=== PATIENT | male | born 1935 ===

== ENCOUNTER 2017-05-19 06:13 | Inpatient (IN) | payer MEDICARE, OTHER ==
--- NOTE | 2017-05-19 06:40 | ED PDOC ---
Arrival/HPI - General Chief Complaint: Chest Pain Time Seen by Provider: 05/19/17 06:21 Historian: Patient, Parent (Daughter) - History of Present Illness Narrative History of Present Illness (Text): 05/19/17 06:36 Neelima Beltrán is an 82 year old male, whose past medical history includes CAD , coronary stent, hyperlipidemia, hypertension, and GERD, who presents to the Emergency department complaining of chest discomfort and dizziness. Daughter states patient woke up this morning increasingly dizzy with associated nausea, vomiting, and chest tightness. Patient describes dizziness as room-spinning. Daughter notes patient was recently ill with cold-like symptoms and cough. Patient denies any fever, shortness of breath, diarrhea, urinary symptoms, back pain, neck pain, headache, or any other complaints. PMD: Dr. Jan Dowd Time/Duration: Other (this morning) Symptom Course: Unchanged Activities at Onset: Light Context: Home Past Medical History - Provider Review Nursing Documentation Reviewed: Yes - Infectious Disease Hx of Infectious Diseases: None - Tetanus Immunization Tetanus Immunization: Unknown - Cardiac Hx Cardiac Disorders: Yes (ANGIOPLASTY 1998) Hx Hypertension: Yes - Pulmonary Hx Respiratory Disorders: Yes (DEVIATED SEPTUM WITH SX) Hx Emphysema: Yes Hx Pneumonia: Yes - Neurological Hx Neurological Disorder: No - HEENT Hx HEENT Disorder: (WEARS RX GLASSES,DEVIATED SEPTUM WITH SX) Hx Cataracts: Yes (RT WITH SURGERY) - Renal Hx Renal Disorder: No - Endocrine/Metabolic Hx Endocrine Disorders: No - Hematological/Oncological Hx Blood Disorders: No - Integumentary Hx Dermatological Disorder: No - Musculoskeletal/Rheumatological Hx Musculoskeletal Disorders: Yes (SLIPPED DISC) Hx Falls: No Hx Unsteady Gait: Yes - Gastrointestinal Hx Gastrointestinal Disorders: Yes (APPENDECTOMY,) Hx Gastroesophageal Reflux: Yes - Genitourinary/Gynecological Hx Genitourinary Disorders: Yes Hx Prostate Problems: Yes (ENLARGED ON PROSCAR) - Psychiatric Hx Psychophysiologic Disorder: No Hx Depression: No Hx Emotional Abuse: No Hx Physical Abuse: No Hx Substance Use: No - Surgical History Hx Appendectomy: Yes Hx Cardiac Catheterization: Yes - Suicidal Assessment Feels Threatened In Home Enviroment: No Family/Social History - Physician Review Nursing Documentation Reviewed: Yes Family/Social History: Unknown Family HX Smoking Status: Former Smoker Hx Alcohol Use: No Hx Substance Use: No Hx Substance Use Treatment: No Allergies/Home Meds Allergies/Adverse Reactions: Allergies Penicillins Allergy (Verified 05/19/17 06:36) RASH Home Medications: Home Meds Medication Instructions Recorded Confirmed Finasteride [Proscar] 5 mg PO DAILY 12/10/11 01/22/16 Pravastatin Sodium [Pravachol] 80 mg PO DAILY 12/10/11 01/22/16 Metoprolol Succinate [Toprol XL] 25 mg PO DAILY 01/15/13 01/22/16 Amlodipine Besylate [Norvasc] 5 mg PO DAILY 01/22/16 01/22/16 Clopidogrel [Plavix] 75 mg PO DAILY 01/22/16 01/22/16 Review of Systems - Physician Review All systems were reviewed & negative as marked: Yes - Review of Systems Constitutional: Normal. absent: Fevers Eyes: Normal ENT: Normal Respiratory: absent: SOB Cardiovascular: Chest Pain Gastrointestinal: Nausea, Vomiting Genitourinary Male: Normal. absent: Dysuria, Frequency, Hematuria, Urinary Output Changes Musculoskeletal: Normal. absent: Back Pain, Neck Pain Skin: Normal. absent: Rash Neurological: Dizziness Endocrine: Normal Hemo/Lymphatic: Normal Psychiatric: Normal Physical Exam Vital Signs Reviewed: Yes Vital Signs Pulse Resp BP Pulse Ox 05/19/17 06:33 71 12 110/60 98 Temperature: Afebrile Blood Pressure: Normal Pulse: Regular Respiratory Rate: Normal Appearance: Positive for: Non-Toxic, Comfortable Pain Distress: None Mental Status: Positive for: Alert and Oriented X 3 - Systems Exam Head: Present: Atraumatic, Normocephalic Pupils: Present: PERRL Extroacular Muscles: Present: EOMI Conjunctiva: Present: Normal Ears: Present: Normal, NORMAL TM, Normal Canal. No: Erythema, TM Bulging, Fluid , TM Perf Mouth: Present: Moist Mucous Membranes Pharnyx: Present: Normal. No: ERYTHEMA, EXUDATE, TONSILS ENLARGED, Peritonsilar Swelling, Uvular Deviation, Muffled/Hoarse Voice, Strider, Soft Palate/Uvular Edema Nose (External): Present: Atraumatic Nose (Internal): Present: Normal Inspection Neck: Present: Normal Range of Motion Respiratory/Chest: Present: Clear to Auscultation, Good Air Exchange. No: Respiratory Distress, Accessory Muscle Use Cardiovascular: Present: Regular Rate and Rhythm, Normal S1, S2. No: Murmurs Abdomen: Present: Normal Bowel Sounds. No: Tenderness, Distention, Peritoneal Signs Back: Present: Normal Inspection Upper Extremity: Present: Normal Inspection. No: Cyanosis, Edema Lower Extremity: Present: Normal Inspection. No: Edema Neurological: Present: GCS=15, CN II-XII Intact, Speech Normal Skin: Present: Warm, Dry, Normal Color. No: Rashes Psychiatric: Present: Alert, Oriented x 3, Normal Insight, Normal Concentration Medical Decision Making ED Course and Treatment: 05/19/17 06:36 Impression: 82 year old male complaining of dizziness, nausea, vomiting, and chest tightness Differential Diagnosis included but are not limited to: chest pain secondary ACS vs. llabyrinthitis vs. viral syndromevs new onset atrial fibrillation Plan: -- CT Head w/o contrast -- EKG -- Chest X-ray -- Labs, cardiac enzymes -- IV fluids -- Zofran -- Reassess and disposition Prior Visits: Notes and results from previous visits were reviewed. On 03/25/2015, pt was seen in the Emergency department for left-sided chest pain. Pt was d/c home Progress Notes: Reviewed EKG, a fib at [address] Non-specific ST/T wave changes. 05/19/17 07:[address] Medel, pending labs, CT Head, Chest X-ray, re-assessment , and final disposition. - Lab Interpretations Lab Results: 05/19/17 06:45 05/19/17 06:45 Lab Results 05/19/17 06:45: WBC 6.8 D, RBC 4.07, Hgb 13.6 L, Hct 39.2 L, MCV 96.3, MCH 33.4 , MCHC 34.7, RDW 13.2, Plt Count 144, MPV 10.1 05/19/17 06:45: PT 10.7, INR 0.97, APTT 32.8 05/19/17 06:45: Sodium 139, Potassium 3.8, Chloride 100, Carbon Dioxide 29, Anion Gap 13, BUN 19, Creatinine 1.3, Est GFR ( Amer) > 60, Est GFR (Non- Af Amer) 53, Random Glucose 164 H, Calcium 9.0, Total Bilirubin 0.6, AST 39, ALT 36, Alkaline Phosphatase 65, Lactate Dehydrogenase 438, Total Creatine Kinase 76, Troponin I < 0.01, Total Protein 7.9, Albumin 4.3, Globulin 3.5, Albumin/Globulin Ratio 1.2 - RAD Interpretation Radiology Orders: 05/19/17 06:41 HEAD W/O CONTRAST [CT] Stat 05/19/17 06:42 CHEST PORTABLE [RAD] Stat - EKG Interpretation Interpreted by ED Physician: Yes Type: 12 lead EKG - Medication Orders Current Medication Orders: Sodium Chloride (Sodium Chloride 0.9%) 1,000 mls @ 100 mls/hr IV .Q10H TIFFANY Last Admin: 05/19/17 06:58 Dose: 100 mls/hr eMAR Start Stop Document 05/19/17 06:58 SHILOH (Rec: 05/19/17 06:58 SHILOH [id number]) Intravenous Solution Start Date 05/19/17 Start Time 06:58 Metoclopramide HCl (Reglan) 10 mg IVP STAT STA Stop: 05/19/17 07:46 Discontinued Medications Ondansetron HCl (Zofran Inj) 4 mg IVP ONCE ONE Stop: 05/19/17 06:44 Last Admin: 05/19/17 06:58 Dose: 4 mg IVP Administration Document 05/19/17 06:58 SHILOH (Rec: 05/19/17 06:58 SHILOH [id number]) Charges for Administration # of IVP Administrations 1 - Scribe Statement The provider has reviewed the documentation as recorded by the Emilia Andrade Provider Scribe Attestation: All medical record entries made by the Scribe were at my direction and personally dictated by me. I have reviewed the chart and agree that the record accurately reflects my personal performance of the history, physical exam, medical decision making, and the department course for this patient. I have also personally directed, reviewed, and agree with the discharge instructions and disposition. Disposition/Present on Arrival - Present on Arrival Any Indicators Present on Arrival: No History of DVT/PE: No History of Uncontrolled Diabetes: No Urinary Catheter: No History of Decub. Ulcer: No - Disposition Have Diagnosis and Disposition been Completed?: No Diagnosis: Chest pain, Dizziness, Atrial fibrillation Disposition Time: 07:40 Patient Problems: Current Active Problems Problem Status Onset Chest pain Acute Dizziness Acute Condition: STABLE Discharge Instructions (ExitCare): Chest Pain (ED) Forms: [employer] (Slovenian)
[2017-05-19] MEDS: Sodium Chloride 0.9% 1,000 ML IV SCH ×2 (06:58→17:21)
[2017-05-19 07:05] LABS: HEMATOCRIT 39.2 % (42.0-52.0); MEAN CELL VOLUME 96.3 fl (80.0-105.0); MEAN CORPUSCULAR HEMOGLOBIN 33.4 pg (25.0-35.0); MEAN CORPUSCULAR HGB CONC 34.7 g/dl (31.0-37.0); MEAN PLATELET VOLUME 10.1 fl (7.0-11.0); RED CELL DISTRIBUTION WIDTH 13.2 % (11.5-14.5); WHITE BLOOD COUNT 6.8 10^3/ul (4.5-11.0)
[2017-05-19 07:16] LABS: ALB/GLOB RATIO 1.2 (1.1-1.8); ALKALINE PHOSPHATASE 65 U/L (38-126); ALT/SGPT 36 U/L (7-56); AST/SGOT 39 U/L (17-59); BILIRUBIN,TOTAL 0.6 mg/dL (0.2-1.3); BLOOD UREA NITROGEN 19 mg/dL (7-21); CARBON DIOXIDE 29 mmol/L (21-33); CHLORIDE 100 mmol/L (98-107); GFR AFRICAN-AMERICAN > 60; GLUCOSE,RANDOM 164 mg/dL (70-110); POTASSIUM 3.8 mmol/L (3.6-5.0); SODIUM 139 mmol/L (132-148); TOTAL PROTEIN 7.9 g/dL (5.8-8.3)
[2017-05-19 07:27] LABS: TROPONIN I < 0.01 ng/mL
[2017-05-19 07:34] LABS: INR 0.97 (0.93-1.08); PARTIAL THROMBOPLASTIN TIME 32.8 Seconds (25.1-36.5)
--- NOTE | 2017-05-19 08:10 | ED PDOC ---
Physical Exam Vital Signs Temp Pulse Resp BP Pulse Ox 05/19/17 08:02 97.2 F L 68 18 99/68 L 98 05/19/17 06:33 71 12 110/60 98 Finger Stick Blood Glucose: 148 Medical Decision Making ED Course and Treatment: 05/19/17 07:07 the patient is signed out to me by Dr. Hopkins, who states the patient is pending CT result follow up, reevaluation, and admission. The patient upon reevaluation is complaining of dizziness, I ordered Reglan IV. 05/19/17 07:58 EKG: Ordered, reviewed, and independently interpreted the EKG. Rate : 71 BPM Rhythm : Atrial Fibrillation Interpretation : No ST-segment elevations or depressions, no T-wave inversions, normal intervals. Comparison : No change from EKG at 6:30am. The patient does not have a prior history of atrial fibrillation. 05/19/17 10:[address] reviewed. No infarct or bleed. Aspirin PO ordered. NIHSS = 0. Considering patient's cardiac risk factors, new onset afib and presentation of chest pain and dizziness patient should be admitted for telemetry observation. Since patient continued to have dizziness will consider CVA rule as well. Case discussed with Dr. Dowd who agreed to admit to her service. She requested Dr. Rod for cardiology and Dr. Mckeon for neurology. I discussed the case with Dr. Rod who recommended Eliquis 5mg BID. First dose was given here in the ED. No further recommendations. - Lab Interpretations Lab Results: 05/19/17 06:45 05/19/17 06:45 Lab Results 05/19/17 06:45: WBC 6.8 D, RBC 4.07, Hgb 13.6 L, Hct 39.2 L, MCV 96.3, MCH 33.4 , MCHC 34.7, RDW 13.2, Plt Count 144, MPV 10.1 05/19/17 06:45: PT 10.7, INR 0.97, APTT 32.8 05/19/17 06:45: Sodium 139, Potassium 3.8, Chloride 100, Carbon Dioxide 29, Anion Gap 13, BUN 19, Creatinine 1.3, Est GFR ( Amer) > 60, Est GFR (Non- Af Amer) 53, Random Glucose 164 H, Calcium 9.0, Total Bilirubin 0.6, AST 39, ALT 36, Alkaline Phosphatase 65, Lactate Dehydrogenase 438, Total Creatine Kinase 76, Troponin I < 0.01, Total Protein 7.9, Albumin 4.3, Globulin 3.5, Albumin/Globulin Ratio 1.2 05/19/17 06:38: POC Glucose (mg/dL) 148 H - RAD Interpretation Radiology Orders: 05/19/17 06:41 HEAD W/O CONTRAST [CT] Stat 05/19/17 06:42 CHEST PORTABLE [RAD] Stat - Medication Orders Current Medication Orders: Sodium Chloride (Sodium Chloride 0.9%) 1,000 mls @ 100 mls/hr IV .Q10H TIFFANY Last Admin: 05/19/17 06:58 Dose: 100 mls/hr eMAR Start Stop Document 05/19/17 06:58 SHILOH (Rec: 05/19/17 06:58 SHILOH [id number]) Intravenous Solution Start Date 05/19/17 Start Time 06:58 Discontinued Medications Metoclopramide HCl (Reglan) 10 mg IVP STAT STA Stop: 05/19/17 07:46 Last Admin: 05/19/17 08:08 Dose: 10 mg IVP Administration Document 05/19/17 08:08 RG (Rec: 05/19/17 08:10 RG [id number]) Charges for Administration # of IVP Administrations 1 Ondansetron HCl (Zofran Inj) 4 mg IVP ONCE ONE Stop: 05/19/17 06:44 Last Admin: 05/19/17 06:58 Dose: 4 mg IVP Administration Document 05/19/17 06:58 SHILOH (Rec: 05/19/17 06:58 SHILOH [id number]) Charges for Administration # of IVP Administrations 1 - Scribe Statement The provider has reviewed the documentation as recorded by the Emilia Benavides Provider Scribe Attestation: All medical record entries made by the Scribe were at my direction and personally dictated by me. I have reviewed the chart and agree that the record accurately reflects my personal performance of the history, physical exam, medical decision making, and the department course for this patient. I have also personally directed, reviewed, and agree with the discharge instructions and disposition. Disposition/Present on Arrival - Present on Arrival Any Indicators Present on Arrival: No History of DVT/PE: No History of Uncontrolled Diabetes: No Urinary Catheter: No History of Decub. Ulcer: No History Surgical Site Infection Following: None - Disposition Have Diagnosis and Disposition been Completed?: Yes Diagnosis: Chest pain, Dizziness, Atrial fibrillation Disposition: HOSPITALIZED Disposition Time: 14:05 Patient Plan: Observation Patient Problems: Current Active Problems Problem Status Onset Atrial fibrillation Acute Chest pain Acute Dizziness Acute Condition: STABLE NIHSS Scale ([place]) - How Severe is the Stoke Baseline Level of Consciousness: 0=Alert LOC to Questions: 0=Both comments correct LOC to commands: 0=Obeys both correctly Best Gaze: 0=Normal Visual: 0=No visual loss Facial: 0=Normal Motor Arm - Left: 0=No drift Motor Arm - Right: 0=No drift Motor Leg - Left: 0=No drift Motor Leg - Right: 0=No drift Limb Ataxia: 0=Absent Sensory: 0=Normal Best Language: 0=No aphasia Dysarthia: 0=Normal articulation Extinction & Inattention (Neglect): 0=Normal, no object Score: 0 Risk Level: No Stroke Risk rTPA Inclusion/Exclusion - Inclusion Criteria for Altepase Patient is 18 years or Older: Yes The Clinical Diagnosis of Ischemic Stroke That is Causing a Potentially Disabling Neurological Deficit: No Time of Onset is Well Established to be Less Than 270 Minute Before Treatment Would Begin: No Risk/Benefit Discussed With Patient/Family Member Present: No
--- NOTE | 2017-05-19 08:47 | RAD ---
HISTORY: chest pain COMPARISON: 03/25/2015 FINDINGS: LUNGS: No active pulmonary disease. PLEURA: No significant pleural effusion identified, no pneumothorax apparent. CARDIOVASCULAR: Normal. OSSEOUS STRUCTURES: No significant abnormalities. VISUALIZED UPPER ABDOMEN: Normal. OTHER FINDINGS: None. IMPRESSION: No active disease.
--- NOTE | 2017-05-19 10:32 | CT ---
PROCEDURE: CT HEAD WITHOUT CONTRAST. HISTORY: dizzy COMPARISON: None available. TECHNIQUE: Axial computed tomography images were obtained through the head/brain without intravenous contrast. Radiation dose: Total exam DLP = 775 mGy-cm. This CT exam was performed using one or more of the following dose reduction techniques: Automated exposure control, adjustment of the mA and/or kV according to patient size, and/or use of iterative reconstruction technique. FINDINGS: HEMORRHAGE: No intracranial hemorrhage. BRAIN: No mass effect or edema. No atrophy or chronic microvascular ischemic changes. VENTRICLES: Unremarkable. No hydrocephalus. CALVARIUM: Unremarkable. PARANASAL SINUSES: Unremarkable as visualized. No significant inflammatory changes. MASTOID AIR CELLS: Unremarkable as visualized. No inflammatory changes. OTHER FINDINGS: None. IMPRESSION: Normal CT of the Head.
[2017-05-19 18:33] VITALS: BMI 18.3
--- NOTE | 2017-05-19 18:58 | CARD ---
APPROVED REPORT EKG Measurement Heart [id number] <Conclusion> Atrial fibrillation Abnormal ECG
--- NOTE | 2017-05-19 18:59 | CARD ---
APPROVED REPORT EKG Measurement Heart [id number] <Conclusion> Atrial fibrillation Abnormal ECG
--- NOTE | 2017-05-19 20:06 | MRI ---
EXAM: MR Head Without Intravenous Contrast CLINICAL HISTORY: 82 years old, male; Signs and symptoms; Dizziness TECHNIQUE: Magnetic resonance images of the head/brain without intravenous contrast in multiple planes. COMPARISON: CT - HEAD W/O CONTRAST 2017-05-19 10:18 FINDINGS: Brain: Moderate atrophy. No intracranial hemorrhage. No mass. Several foci of high T2 signal within periventricular and subcortical white matter. No abnormal restricted diffusion. Ventricles: No ventriculomegaly. Bones/joints: No acute fracture. Sinuses: Scattered mild mucosal thickening. Mastoid air cells: No mastoid effusion. Orbits: Unremarkable as visualized. IMPRESSION: 1. No MRI evidence of acute infarction. 2. Chronic ischemic white matter changes. 3. Incidental/non-acute findings are described above.
--- NOTE | 2017-05-20 00:47 | CON ---
DATE: HISTORY OF PRESENT ILLNESS: This is an 82-year-old male with no significant past medical history came to the hospital with dizziness, and the patient was also vomiting and also has atrial fibrillation, and called to evaluate the patient for dizziness. His symptoms are better now. Daughter is at bedside. No nausea. No vomiting. No blurring of vision. No double vision. PAST MEDICAL HISTORY: As above. SOCIAL HISTORY: Does not smoke. Does not drink. Daughter lives in the same house upstairs. REVIEW OF SYSTEMS: A 10-point review of systems was negative. PHYSICAL EXAMINATION: VITAL SIGNS: Blood pressure 110/60. HEENT: Normocephalic, atraumatic. NECK: Supple. NEUROLOGIC: Alert, awake and oriented x3. No aphasia. Cranial nerves II through XII are tested. Pupils are reactive. EOM intact. Visual field full. No facial asymmetry. Tongue midline. Motor examination, spontaneous movement of all the extremities noted. Deep tendon reflexes 1+. Both plantars are downgoing. Sensory appears intact. Cerebellar and gait, deferred. IMPRESSION: Vertigo, rule out vertebrobasilar ischemia. CAT scan of the head was done, which was negative. Possibly, dizziness, benign positional, and continue present management. CAT scan of the head was negative and we will start him on meclizine 25 mg 1 p.o. q. 8 hours p.r.n. Nick Mckeon MD
[2017-05-20 01:36] LABS: TROPONIN I < 0.01 ng/mL
[2017-05-20] MEDS: Sodium Chloride 0.9% 1,000 ML IV SCH (03:50)
--- NOTE | 2017-05-20 04:56 | CON ---
DATE: 05/19/2017 SERVICE: Cardiology. REASON FOR CONSULTATION: Cardiac evaluation, history of coronary artery disease, stent, hypertension, hyperlipidemia. BRIEF CLINICAL HISTORY: This is an 82-year-old male with a past medical history significant for coronary artery disease, status post PTCA 20 years ago, hypertension, hyperlipidemia, recent stress test negative, came in very dizzy, when he went to the bathroom he is about to fall, so helped by the daughter and brought here. The patient denies any chest pain. Denies any shortness of breath. Denies any palpitation. PAST MEDICAL HISTORY: Significant for coronary artery disease, hypertension, hyperlipidemia, history of a stent 20 years ago, hypertension, hyperlipidemia, and gastroesophageal reflux. PAST SURGICAL HISTORY: History of appendectomy many years ago, history of cardiac catheterization, and angioplasty 20 years ago. ALLERGIES: ALLERGY TO PENICILLIN. CURRENT MEDICATIONS: THE PATIENT AT HOME WAS TAKING PRAVASTATIN, METOPROLOL, PROSCAR, PLAVIX, AND AMLODIPINE. RECENT CARDIAC WORKUP: As follows: The patient had a stress test done on 01/22/2012, that showed ejection fraction 67%, no wall motion abnormality. Essentially normal myocardial perfusion study; when compared from previous study 03/05/2015, no significant change noted dated 01/22/2016. Also, the patient had echo a year ago in Dr. Rod's office, details unknown. REVIEW OF SYSTEMS: As per HPI. PHYSICAL EXAMINATION: As follows: VITAL SIGNS: Temperature afebrile, heart rate 66, blood pressure 128/66. HEENT: PERRLA. Extraocular muscles intact. NECK: Supple. No carotid bruit or thyromegaly. CHEST: Clear to auscultation. HEART: S1, S2, regular. ABDOMEN: Soft. EXTREMITIES: Clubbing and cyanosis negative. DIAGNOSTIC DATA: EKG admitting shows atrial fibrillation time 7:42, heart rate 79. Repeat quality assurance monitor final now shows the patient is in normal sinus. BLOOD WORKUP: WBC 6.8, hemoglobin 13.6, hematocrit 39.2, platelet count 144. Chemistry shows sodium of 139, potassium , chloride 100, carbon dioxide 29, anion gap 19, BUN 13, creatinine 1.3. Troponin 0.01 negative. IMPRESSION: Paroxysmal atrial fibrillation converted to normal sinus, dizziness, nausea, vomiting, history of coronary artery disease, diabetes, hypertension, hyperlipidemia, history of a stent 20 years ago. Recent stress in the last year, March was negative. RECOMMENDATIONS: Follow up serial CPK, troponin. lipid profile, TSH, hemoglobin A1c. We will get echo to assess LV function. We will start low-dose beta-umu. Interim, we will give one more dose of Eliquis. Since the CAT scan of the head is negative for bleed, we will continue Eliquis. Further recommendations depend upon hospital course, we will follow with you. We will give an extra one dose of metoprolol tartrate 25 and start metoprolol succinate as usual dose from tomorrow. Thank you Dr. Dowd for providing the opportunity in taking care of your patient, Neelima Beltrán. We will follow with you. Art Dash MD
--- NOTE | 2017-05-20 04:59 | HP ---
CHIEF COMPLAINT: Dizziness, palpitation, chest pain. HISTORY OF PRESENT ILLNESS: Mr. Neelima Beltrán is an 82-year-old male with past medical history of coronary artery disease, coronary stents, hypercholesterinemia, hypertension, GERD, came to the emergency department, complaining of chest discomfort and dizziness. Daughter said the patient woke up this morning with increasing dizziness associated with nausea and vomiting and chest tightness. The patient described dizziness as room spinning. Daughter noticed the patient has recently ill with cold-like symptoms and coughing. The patient denies any fever or chills. The patient was seen a couple of days ago in my office for dizziness. Antibiotic was given. The patient was seen by the electrician elevator maintenance 3 months ago and his appointment was on Tuesday in Dr. Rod's office. PAST MEDICAL HISTORY: History of angioplasty in 1998, hypertension, deviated nasal septum, emphysema, pneumonia, history of cataract, slipped disk, unsteady gait, appendectomy, enlarged prostate, and cardiac catheterization. FAMILY HISTORY: Father and mother noncontributory. HABITS: Former smoker, now quit smoking. No alcohol. No substance abuse. ALLERGIES: THE PATIENT IS ALLERGIC TO PENICILLIN. HOME MEDICATIONS: Proscar, Pravachol, Toprol, Norvasc, and Plavix. REVIEW OF SYSTEMS: The patient was seen and examined at the bedside in the ER, looking comfortable, still complaining about chest pain and dizziness. No nausea, vomiting, or diarrhea. No hematuria or hematochezia. No swelling of the legs. No fever. No chills. PHYSICAL EXAMINATION: VITAL SIGNS: Temperature 98.6, pulse 71, respiratory rate 12, and blood pressure 110/60. HEENT: Head, normocephalic and atraumatic. Eyes; PERRLA. Extraocular muscles intact. Conjunctivae clear. Nose patent. Mucous membranes moist. NECK: Supple. No carotid bruits, JVD, or thyromegaly. CHEST: Bilaterally symmetrical. HEART: S1 and S2 positive. LUNGS: Clear to auscultation. ABDOMEN: Soft. Bowel sounds present. No organomegaly. EXTREMITIES: No edema. No cyanosis. NEUROLOGIC: The patient is awake and alert. Moving all 4 extremities. No focal deficits. LABORATORY DATA: White blood cells 6.8, hemoglobin 13.6, hematocrit 39.2 and platelets 144. Sodium 139, potassium 3.8, BUN 11, creatinine 1.3 and glucose 154. ASSESSMENT AND PLAN: Mr. Neelima Beltrán is an 82-year-old male with anemia and hyperglycemia, came with dizziness and chest pain , the patient had atrial fibrillation new onset, started on Eliquis. Cardiology consult called with Dr. Rod and Neurology with Dr. Mckeon. Brain MRI done, history of chronic obstructive pulmonary disease and asthma. No MRI evidence of acute infarction, chronic ischemic white matter changes. Incidental finding is scattered mild mucosal thickening, rule out sinusitis. CAT scan of the head reviewed. Chest x-ray reviewed. Waiting for the input of Dr. Mckeon and Dr. Rod. The patient do not have prior history of atrial fibrillation. Discussion done with Dr. Beatty, emergency room doctor. I requested consulting Dr. Rod and Dr. Mckeon. Dr. Rod started Eliquis 5 mg b.i.d., first dose given in the emergency room. Gastrointestinal and deep venous thrombosis prophylaxis. Repeat labs. We will follow up. Nadia Dowd MD MTDD
[2017-05-20 06:55] LABS: BASO # 0.02 K/mm3 (0.0-2.0); BASO % 0.2 % (0.0-3.0); EOS # 0.3 (0.0-0.7); EOS % 3.6 % (1.5-5.0); GRAN # 6.25 (1.4-6.5); GRAN % 77.7 % (50.0-68.0); HEMATOCRIT 33.6 % (42.0-52.0); LYMPH # 1.1 (1.2-3.4); LYMPH % 13.6 % (22.0-35.0); MEAN CORPUSCULAR HEMOGLOBIN 32.3 pg (25.0-35.0); MEAN CORPUSCULAR HGB CONC 33.6 g/dl (31.0-37.0); MEAN PLATELET VOLUME 10.2 fl (7.0-11.0); MONO # 0.4 (0.1-0.6); MONO % 4.9 % (1.0-6.0); RED CELL DISTRIBUTION WIDTH 13.3 % (11.5-14.5)
[2017-05-20 07:06] LABS: IRON 39 ug/dL (45-180)
[2017-05-20 07:16] LABS: ALB/GLOB RATIO 1.2 (1.1-1.8); ALKALINE PHOSPHATASE 52 U/L (38-126); ALT/SGPT 32 U/L (7-56); AST/SGOT 34 U/L (17-59); BILIRUBIN,TOTAL 0.9 mg/dL (0.2-1.3); BLOOD UREA NITROGEN 11 mg/dL (7-21); CALCIUM 8.6 mg/dL (8.4-10.5); CARBON DIOXIDE 28 mmol/L (21-33); CHLORIDE 106 mmol/L (98-107); CHOLESTEROL 128 mg/dL (130-200); GFR AFRICAN-AMERICAN > 60; GLUCOSE,RANDOM 112 mg/dL (70-110); MAGNESIUM 1.9 mg/dL (1.7-2.2); PHOSPHOROUS 2.8 mg/dL (2.5-4.5); POTASSIUM 4.1 mmol/L (3.6-5.0); SODIUM 137 mmol/L (132-148); TOTAL PROTEIN 6.7 g/dL (5.8-8.3)
[2017-05-20] MEDS: Metoprolol Succinate 25 mg XL Tab PO SCH (10:10)
[2017-05-20 13:28] LABS: FOLATE 8.3 ng/mL
--- NOTE | 2017-05-20 14:34 | PN ---
DATE: 05/20/2017 REASON FOR CONSULTATION AND FOLLOWUP: Cardiac evaluation, history of coronary artery disease stent, hypertension, hyperlipidemia, and admitted with dizziness. SUBJECTIVE: The patient denies any chest pain, shortness of breath or any palpitation. He is on IV fluid. PHYSICAL EXAMINATION: As follows: VITAL SIGNS: Temperature is afebrile, heart rate is 72 and blood pressure is 112/84. HEENT: PERRLA. Extraocular muscles are intact. NECK: Supple. No carotid bruits or thyromegaly. CHEST: Clear to auscultation. HEART: S1 and S2 regular. ABDOMEN: Soft. EXTREMITIES: Clubbing and cyanosis negative. LABORATORY DATA: WBC of 8, hemoglobin of 11.3, hematocrit of 33.6, and platelet count of 135. Chemistry shows sodium of 137, potassium of 4.1, chloride of 106, carbon dioxide of 28, anion gap of 8, BUN of 11, and creatinine of 0.6. Troponin remains 0.01 and negative. Cholesterol of 128, LDL of 62, and HDL of 36. Iron saturation decreased, iron low and TIBC low. IMPRESSION: An 82-year-old male with past medical history significant for coronary artery disease 20 years ago. Most recent stress test on 01/22/2016 was essentially negative and no change from 03/05/2015. Admitted with dizziness near syncope. The patient found to be atrial fibrillation converted to normal sinus, so far no evidence of acute myocardial infarction. Brain magnetic resonance imaging shows no evidence of acute infarction and chronic ischemic changes. RECOMMENDATIONS: Continue meclizine. We will start Eliquis because of new onset of atrial fibrillation, later converted to normal sinus, so we will continue back to metoprolol succinate 25 mg daily, we will start one dose yesterday, was given metoprolol and effectively was given one dose in the ER and then repeated 2.5 mg b.i.d. depending upon renal adjusted and age adjusted dose, but since the patient is in normal sinus, also will discontinue after today's dose. We will check for orthostatic hypotension, if the patient remains sinus, no further doses required very short-lived atrial fibrillation, we will get echo to assess LV function. We will follow with you. Advised the nurse also to get the orthostatic hypotension. Further recommendation for echo and orthostatic hypotension. Atrial fibrillation remained stable, we will discontinued IV fluid. The patient hemodynamically stable, we will discontinued IV fluid, and check for orthostasis. If the patient remained orthostatic,we will restart IV fluids, otherwise treat medically. TSH is 1.53. Hemoglobin A1c is pending. Cholesterol is within normal limits, total cholesterol of 128, LDL of 62, and HDL of 38. Today EKG shows normal sinus, heart rate of 67. Thank you Dr. Dowd for providing us the opportunity in taking care of the patient, Neelima Beltrán. Art Dash MD
--- NOTE | 2017-05-20 17:12 | CARD ---
APPROVED REPORT EXAM: Two-dimensional and M-mode echocardiogram with Doppler and color Doppler. INDICATION Chest Pain 2D DIMENSIONS Left Atrium (2D)3.1 (1.6-4.0cm)IVSd1.1 (0.7-1.1cm) LVDd4.4 (3.9-5.9cm)PWd1.0 (0.7-1.1cm) LVDs2.8 (2.5-4.0cm)FS (%) 37.0 % LVEF (%)67.1 (>50%) Aortic Valve AoV Peak Agyovllh060.0cm/Sandi Peak GR.7mmHg Mitral Valve E/A ratio0.0 TDI E/Lateral E'0.0E/Medial E'0.0 Tricuspid Valve TR Peak [id number] [id number] Peak Gr.36mmHg [id number] LEFT VENTRICLE The left ventricle is normal size. There is mild concentric left ventricular hypertrophy. The left ventricular function is normal.EF-65% There is normal LV segmental wall motion. Transmitral Doppler flow pattern is Grade III-reversible restrictive diastolic dysfunction. No left ventricle thrombus noted on this study. There is no ventricular septal defect visualized. There is no left ventricular aneurysm. There is no mass noted in the left ventricle. RIGHT VENTRICLE The right ventricle is normal size. There is normal right ventricular wall thickness. The right ventricular systolic function is normal. ATRIA The left atrium size is normal. The right atrium size is normal. The interatrial septum is intact with no evidence for an atrial septal defect. AORTIC VALVE The aortic valve is thickened but opens well. No aortic regurgitation is present. There is no aortic valvular stenosis. There is no aortic valvular vegetation. MITRAL VALVE The mitral valve is thickened but opens well. Mitral regurgitation is mild to moderate. There is no mitral valve stenosis. There is no evidence of mitral valve prolapse. TRICUSPID VALVE The tricuspid valve leaflets are thickened , but open well. There is moderate tricuspid regurgitation.RVSP-46 mmof hg. There is no tricuspid valve stenosis. There is no tricuspid valve prolapse or vegetation. PULMONIC VALVE The pulmonary valve is normal in structure. There is trace pulmonic valvular regurgitation. There is no pulmonic valvular stenosis. GREAT VESSELS The aortic root is normal in size. The ascending aorta is normal in size. The pulmonary artery is normal. The IVC is normal in size and collapses >50% with inspiration. PERICARDIAL EFFUSION There is no pleural effusion. There is a trace pericardial effusion. <Conclusion> The left ventricle is normal size. There is mild concentric left ventricular hypertrophy. The left ventricular function is normal.EF-65% Mitral regurgitation is mild to moderate. There is moderate tricuspid regurgitation.RVSP-46 mmof hg. The IVC is normal in size and collapses >50% with inspiration. There is a trace pericardial effusion.
--- NOTE | 2017-05-20 17:58 | CP.PCM.PN ---
<Kelly Myers - Last Filed: 05/20/17 20:41> Subjective - Date & Time of Evaluation Date of Evaluation: 05/20/17 Time of Evaluation: 09:00 - Subjective Subjective: PGY-2 [address] progress note [address] Dr[address] Mckeon's service Patient seen and examined at bedside, no acute distress. patient reports that he is still getting dizziness. Denies that it is worse with standing but states it gets worse with head movements. He denies any other complaints including chest pain, sob, abd pain, focal deficits. Objective - Vital Signs/Intake and Output Vital Signs (last 24 hours): Temp Pulse Resp BP Pulse Ox 98 F 58 L 18 105/66 98 05/20/17 17:50 05/20/17 17:50 05/20/17 17:50 05/20/17 17:50 05/20/17 17:50 Intake and Output: 05/20/17 05/20/17 06:59 18:59 Intake Total 1680 Output Total 400 Balance 1280 - Medications Medications: Current Medications Amlodipine Besylate (Norvasc) 5 mg PO DAILY [facility] Last Admin: 05/20/17 10:10 Dose: 5 mg Apixaban (Eliquis) 2.5 mg PO BID [facility] PRN Reason: Protocol Stop: 05/20/17 23:59 Last Admin: 05/20/17 10:10 Dose: 2.5 mg Atorvastatin Calcium (Lipitor) 20 mg PO DIN [facility] Famotidine (Pepcid) 40 mg PO HS [facility] Finasteride (Proscar) 5 mg PO DAILY [facility] Last Admin: 05/20/17 10:10 Dose: 5 mg Meclizine HCl (Antivert) 25 mg PO Q8 [facility] Last Admin: 05/20/17 14:50 Dose: Not Given Metoprolol Succinate (Toprol Xl) 25 mg PO DAILY [facility] Last Admin: 05/20/17 10:10 Dose: 25 mg - Labs Labs: 05/20/17 06:25 05/20/17 06:25 PT 10.7 SECONDS (9.4-12.5) 05/19/17 06:45 INR 0.97 (0.93-1.08) 05/19/17 06:45 APTT 32.8 Seconds (25.1-36.5) 05/19/17 06:45 - Constitutional Appears: Well, No Acute Distress - Head Exam Head Exam: ATRAUMATIC, NORMAL INSPECTION, NORMOCEPHALIC - Eye Exam Eye Exam: EOMI, Normal appearance - ENT Exam ENT Exam: Mucous Membranes Moist - Respiratory Exam Respiratory Exam: Clear to Ausculation Bilateral, NORMAL BREATHING PATTERN. absent: Rhonchi, Wheezes, Respiratory Distress - Cardiovascular Exam Cardiovascular Exam: REGULAR RHYTHM - GI/Abdominal Exam GI & Abdominal Exam: Soft, Normal Bowel Sounds - Neurological Exam Neurological Exam: Alert, Awake, CN II-XII Intact, Normal Gait, Oriented x3 Neuro motor strength exam: Left Upper Extremity: 5, Right Upper Extremity: 5, Left Lower Extremity: 5, Right Lower Extremity: 5 - Skin Skin Exam: Dry, Intact, Normal Color, Warm Assessment and Plan - Assessment and Plan (Free Text) Assessment: 82 yo male with PMH of HTN, emphysema presents with vertigomost likely benign positional. - CT head was negative - MRI negative with chronic ischemic changes - orthostatic BP is negative - meclizine 25mg q8 prn - avoid sudden movement of the head - consider outpatient vestibular therapy case reviewed and discussed with attending <Julio Mckeon - Last Filed: 05/20/17 23:35> Objective - Vital Signs/Intake and Output Vital Signs (last 24 hours): Temp Pulse Resp BP Pulse Ox 98 F 59 L 18 105/66 98 05/20/17 17:50 05/20/17 18:00 05/20/17 17:50 05/20/17 17:50 05/20/17 17:50 - Medications Medications: Current Medications Amlodipine Besylate (Norvasc) 5 mg PO DAILY [facility] Last Admin: 05/20/17 10:10 Dose: 5 mg Apixaban (Eliquis) 2.5 mg PO BID [facility] PRN Reason: Protocol Stop: 05/20/17 23:59 Last Admin: 05/20/17 18:13 Dose: 2.5 mg Atorvastatin Calcium (Lipitor) 20 mg PO DIN [facility] Last Admin: 05/20/17 18:13 Dose: 20 mg Famotidine (Pepcid) 40 mg PO HS [facility] Last Admin: 05/20/17 21:38 Dose: 40 mg Finasteride (Proscar) 5 mg PO DAILY [facility] Last Admin: 05/20/17 10:10 Dose: 5 mg Meclizine HCl (Antivert) 25 mg PO Q8 [facility] Last Admin: 05/20/17 21:38 Dose: 25 mg Metoprolol Succinate (Toprol Xl) 25 mg PO DAILY [facility] Last Admin: 05/20/17 10:10 Dose: 25 mg - Labs Labs: 05/20/17 06:25 05/20/17 06:25 PT 10.7 SECONDS (9.4-12.5) 05/19/17 06:45 INR 0.97 (0.93-1.08) 05/19/17 06:45 APTT 32.8 Seconds (25.1-36.5) 05/19/17 06:45 Attending/Attestation - Attestation I have personally seen and examined this patient.: Yes I have fully participated in the care of the patient.: Yes I have reviewed all pertinent clinical information, including history, physical exam and plan: Yes
--- NOTE | 2017-05-20 18:20 | CARD ---
APPROVED REPORT EKG Measurement Heart [id number] <Conclusion> Normal sinus rhythm with sinus arrhythmia Normal ECG
--- NOTE | 2017-05-21 01:51 | CON ---
DATE: 05/20/2017 REFERRING PHYSICIAN: Nadia Dowd MD REASON FOR CONSULTATION: Admitted with dizzy spell, palpitation, and chest pain. Has appointment in my office to rule out sleep apnea syndrome, status for upper respiratory infection type symptoms, and history of HISTORY OF PRESENT ILLNESS: This is a 82-year-old male who already had appointment in the office post to see me has a history of coronary artery disease, history of coronary stent, hyperlipidemia, hypertension, and GERD. Recently improving with URI-type of symptoms while he was visiting in the hospital, became dizzy and headache with chest tightness associated with nausea. He came to emergency room and was admitted for further workup, seen by Cardiology as well as Neurology. He is presently lying in the bed, feels better, not much rhinitis or cough at present time. No chest pain. He admit to have loud snoring. No diarrhea. No leg pain or leg swelling. PAST MEDICAL HISTORY: Coronary artery disease, history of coronary angioplasty, hypertension, history of chronic lung disease, history of lumbar radiculopathy, BPH, gastroesophageal reflux disease, hypertension, and hyperlipidemia. ALLERGIES: HE IS ALLERGIC TO PENICILLIN. SOCIAL HISTORY: He is a former smoker. He denied any alcohol use. FAMILY HISTORY: No significant cardiopulmonary disease reported. MEDICATIONS: He is on Antivert 25 mg q. 8 hours., Eliquis 2.5 mg twice a day, Lipitor 20 mg daily, Norvasc 5 mg daily, Pepcid 40 mg daily, Proscar 5 mg daily, and Toprol-XL 25 mg daily. REVIEW OF SYSTEMS: At present, there is no headache and no rhinitis. There is no cough at present. No chest pain. No dysuria. No leg pain or leg swelling. Admit to have loud snoring, daytime sleepy and tired. PHYSICAL EXAMINATION: GENERAL: No acute distress. VITAL SIGNS: Temperature is 98, heart rate is 58, respiratory rate is 80, blood pressure is 105/66, and pulse of 98% on room air. HEENT: Small oral cavity. Crowded airway. NECK: Supple. No JVD. LUNGS: Has fair airflow with rhonchi. HEART: S1 and S2. GASTROINTESTINAL: Abdomen is soft and nontender. No organomegaly. EXTREMITIES: There is no edema. NEUROLOGIC: Awake, alert and follow simple commands. LABORATORY DATA: Shows hemoglobin of 11.3, hematocrit of 33.6, WBC of 8.0, and platelet count is 135. INR is 0.97. Sodium of 137, potassium of 4.1, chloride of 106, bicarbonate of 28, BUN of 11, and creatinine of 1.0. Glucose of 112, calcium of 8.6, phosphorus of 2.8, and magnesium of 1.9. Iron is 39. AST is 34, ALT is 32, and alkaline phosphatase is 52, albumin is 3.6, and globulin is 3.1. Cholesterol is 128 and B12 is 506. Folate is 8.3. TSH 1.52. DIAGNOSTIC DATA: Echocardiogram shows normal left ventricular ejection fraction, left ventricular hypertrophy, and right ventricular systolic pressure is 46. MRI of the brain negative for any acute finding. Echocardiogram shows atrial fibrillation. IMPRESSION AND PLAN: Near syncopal episode, history of atrial fibrillation, mild cardiomyopathy with pulmonary hypertension, chronic obstructive lung disease, history of coronary artery disease, and hyperlipidemia. Agree with present management. The patient seen by Neurology and Cardiology. Continue anticoagulation, a inhaled bronchodilator upon discharge. Will need 10-day sleep study and also need pulmonary function tests. Thank you and we will follow with you Art Dubon MD
[2017-05-21 07:40] LABS: HEMATOCRIT 36.3 % (42.0-52.0); MEAN CELL VOLUME 96.8 fl (80.0-105.0); MEAN CORPUSCULAR HEMOGLOBIN 32.5 pg (25.0-35.0); MEAN CORPUSCULAR HGB CONC 33.6 g/dl (31.0-37.0); MEAN PLATELET VOLUME 10.1 fl (7.0-11.0); RED CELL DISTRIBUTION WIDTH 13.1 % (11.5-14.5); WHITE BLOOD COUNT 5.7 10^3/ul (4.5-11.0)
[2017-05-21 08:18] LABS: BLOOD UREA NITROGEN 14 mg/dL (7-21); CALCIUM 8.9 mg/dL (8.4-10.5); CARBON DIOXIDE 26 mmol/L (21-33); CHLORIDE 102 mmol/L (98-107); GFR AFRICAN-AMERICAN > 60; GLUCOSE,RANDOM 107 mg/dL (70-110); POTASSIUM 4.2 mmol/L (3.6-5.0); SODIUM 136 mmol/L (132-148)
[2017-05-21] MEDS: Metoprolol Succinate 25 mg XL Tab PO SCH (09:34)
[2017-05-21] MEDS: Iron Complex Polysacch 150mg Cap PO SCH (19:00)
--- NOTE | 2017-05-21 20:11 | PN ---
DATE: 05/21/2017 LOCATION: The patient is in room 374, bed 1. REASON FOR CONSULTATION: Followup coronary artery disease, hypertension, hyperlipidemia, dizziness, atrial fibrillation converted to sinus rhythm. SUBJECTIVE: The patient denies any chest pain, shortness of breath, palpitation. PHYSICAL EXAMINATION VITAL SIGNS: Blood pressure 124/76,pulse 57, respirations 18, and temperature 98.2. HEENT: Head is normocephalic. Eyes; pupils are normal. Conjunctivae normal. Nose and throat normal. NECK: JVP low. Carotid equal. THORAX: AP diameter normal. LUNGS: Clear. CARDIOPULMONARY: S1 and S2. ABDOMEN: Soft, nontender. No organomegaly. Bowel sounds are normal. EXTREMITIES: No clubbing. No cyanosis. LABORATORY DATA: WBC 5.7, hemoglobin 12.2, hematocrit 36.3, platelet 134. Sodium 136, potassium 4.2, BUN 14, creatinine 1.0, calcium 8.9, glucose 107, TSH 2.44. Echo on 05/20/2017 showed normal size LV consenting left ventricular hypertrophy, normal LV ejection fraction of 65%, [id number] mitral regurgitation, moderate tricuspid regurgitation with RVSP of 46 mmHg suggestive of mild pulmonary hypertension, brooke pericardial seen. DIAGNOSES: Coronary artery disease, dizziness, near syncope, atrial fibrillation converted to sinus rhythm. Most recent stress test on 01/22/2016 was normal. Echo done yesterday finding has been described above. PLAN: The patient is on meclizine 25 mg q. 8 hours, Lipitor 20 mg daily, amlodipine 5 mg daily, Pepcid 40 mg p.o. at bedtime, Proscar 5 mg daily, Toprol-XL 25 mg p.o. daily. We will continue present therapy. We will follow. Art Rod MD
--- NOTE | 2017-05-21 21:30 | PN ---
PULMONARY PROGRESS NOTE DATE: 05/21/2017 REFERRING PHYSICIAN: Nadia Dowd MD SUBJECTIVE: He is out of bed to chair. Feels better. Still have a little lightheadedness, but no rhinitis, mild cough. No sputum production. No nausea or vomiting. No diarrhea. No leg pain or leg swelling. PHYSICAL EXAMINATION: GENERAL: In no acute distress. VITAL SIGNS: Temperature is 98, heart rate is 57, respiratory rate is 20, blood pressure is 124/76 and pulse ox 98% on room air. HEENT: Moist mucous membrane. Crowded airway. Mallampati score is IV. NECK: Supple. No JVD. LUNGS: Has fair airflow with few rhonchi. HEART: S1 and S2. ABDOMEN: Soft and nontender. No organomegaly. EXTREMITIES: No edema. NEUROLOGIC: Awake, alert and follow simple commands. MEDICATIONS: He is on Antivert 25 mg q.8 hours., Lipitor 20 mg daily, Norvasc 5 mg daily, Pepcid 40 mg daily, Proscar 5 mg daily and Toprol-XL 25 mg daily. LABORATORY DATA: Shows hemoglobin of 12.2, hematocrit of 36.3, WBC 5.7, and platelet count is 134. Sodium 136, potassium of 4.2, chloride of 102, bicarbonate 26, BUN 14, creatinine 1.0, glucose 107 and calcium 8.9. IMPRESSION AND PLAN: Near syncopal episode, atrial fibrillation, mild cardiomyopathy with pulmonary hypertension, chronic obstructive lung disease, history of coronary artery disease and hyperlipidemia. May have sleep apnea syndrome. Most of the workup looks unremarkable. It could be just some viral related rhinosinusitis affecting the ears and getting this near syncope. I will add doxycycline for 5 days or so and prednisone taper dose starting 20 mg today. The patient will be scheduled for attended sleep study upon discharge as an outpatient. Art Dubon MD
--- NOTE | 2017-05-21 22:09 | PN ---
DATE: SUBJECTIVE: The patient is 82-year-old male. The patient was seen and examined on the bedside, looking comfortable, still feeling dizzy, but better, having pains and aches in the joints. No nausea, vomiting, or diarrhea. No fever. No chills. No headache. No hematuria or hematochezia. No diarrhea. No constipation. PHYSICAL EXAMINATION: GENERAL: Temperature 98.6, pulse 57, blood pressure 124/76 and respiratory rate 20. HEENT: Head, normocephalic and atraumatic. Eyes; PERRLA. Extraocular muscles intact. Conjunctivae clear. Nose patent. Mucous membranes moist. NECK: Supple. No carotid bruits, JVD, or thyromegaly. CHEST: Bilaterally symmetrical. HEART: S1 and S2 positive. LUNGS: Clear to auscultation. ABDOMEN: Soft. Bowel sounds present. No organomegaly. EXTREMITIES: No edema. No cyanosis. NEUROLOGIC: The patient is awake and alert. Moving all 4 extremities. No focal deficits. MEDICATIONS: Antivert, doxycycline, Lipitor, amlodipine, Pepcid, prednisone, Proscar, and metoprolol. LABORATORY DATA: White blood cell is 5.7, hemoglobin 12.2, hematocrit of 36.3, and platelets 134. Sodium 136, potassium 4.2, BUN 14, creatinine 1.0, and glucose 107. ASSESSMENT AND PLAN: Mr. Neelima Beltrán is an 82-year-old male with anemia, iron deficiency, hyperglycemia, came with dizziness, history of coronary artery disease, history of coronary angioplasty, hypertension, chronic lung disease, lumbar radiculopathy, benign prostatic hypertrophy, gastroesophageal reflux disease, hypercholesterolemia, near syncopal episode, history of atrial fibrillation, new onset, mild cardiomyopathy, pulmonary hypertension. Neurologist and workers' compensation hearings officer is on the case. Continue inhaled bronchodilators. ENT consult called, waiting for the input. CT of the head is negative. According to neurologist, the patient vertigo is benign and positional. MRI negative with chronic ischemic changes. Orthostatic blood pressure is negative. Meclizine added. Avoid sudden movement of the head. Need vascular therapy, that is why we called ENT consult for Epli procedure. We will followup. Nadia Noemí, MD MTDD
[2017-05-22 01:35] VITALS: RESP 20
[2017-05-22 06:15] VITALS: O2SAT 98
[2017-05-22] MEDS: Iron Complex Polysacch 150mg Cap PO SCH (09:31)
[2017-05-22] MEDS: Metoprolol Succinate 25 mg XL Tab PO SCH (09:35)
[2017-05-22 12:11] VITALS: BP 110/72; TEMP 97.4
--- NOTE | 2017-05-22 14:17 | PN ---
DATE: 05/22/2017 PULMONARY PROGRESS NOTE REFERRING PHYSICIAN: Nadia Dowd MD SUBJECTIVE: The patient is lying in the bed, head at 45 degrees. Feels much better, still feel foggy and little lightheadedness. No vertigo today. Mild cough though. No nausea, vomiting, or diarrhea. No leg pain or leg swelling. OBJECTIVE: GENERAL: In no acute distress. VITAL SIGNS: Temperature is 98, heart rate is 59, respiratory rate is 20, blood pressure is 110/72, and pulse oximetry is 98% on room air. HEENT: Moist mucous membrane. Crowded airway. No facial tenderness. NECK: Supple. No JVD. LUNGS: Has fair airflow with few rhonchi. HEART: S1 and S2. ABDOMEN: Soft and nontender. No organomegaly. EXTREMITIES: There is no edema. NEUROLOGIC: Awake, alert, and follow simple commands. MEDICATIONS: He is on Antivert 25 mg q.8 hours, doxycycline 100 mg twice a day, Ferrex 150 mg daily, Lipitor 20 mg daily, Norvasc 5 mg daily, Pepcid 40 mg daily, prednisone 20 mg daily, Proscar 5 mg daily, and Toprol XL 25 mg daily. LABORATORY DATA: Shows hemoglobin 12.2, hematocrit 36.3, WBC 5.7, and platelets are 134. Sodium 136, potassium 4.2, chloride 102, bicarbonate 26, BUN 14, creatinine 1.0, glucose 107, and calcium 8.9. IMPRESSION AND PLAN: Near syncope, lightheadedness, atrial fibrillation, cardiomyopathy, pulmonary hypertension, chronic obstructive lung disease, history of coronary artery disease, hyperlipidemia, and may have rhinosinusitis causing his lightheadedness. Started on prednisone and antibiotics. Hopefully, next day or so he should clear up, out of bed to chair, and fall precautions. Continue therapy and we will follow with you. Art Dubon MD
[2017-05-22 15:44] VITALS: PULSE 63
--- NOTE | 2017-05-22 21:12 | PN ---
DATE: 05/22/2017 LOCATION: The patient is in room 374, bed 1. REASON FOR CONSULTATION: Follow up with coronary artery disease, hypertension, hyperlipidemia, dizziness, atrial fibrillation converted to sinus rhythm. SUBJECTIVE: The patient still states that if he moves his head [id number], he feels dizzy. Denies any chest pain, shortness of breath or palpitations. PHYSICAL EXAMINATION: VITAL SIGNS: Blood pressure took in 3 positions; lying down 129/75, sitting down 129/81, standing up 112/72, but the patient was dizzy also on lying on down. His dizziness is more related to moving head, some [id number]. Respirations 20, pulse 59, temperature 97.4. HEENT: Head is normocephalic. Eyes: Pupils normal, conjunctivae normal. NECK: JVP low. Carotids equal. THORAX: AP diameter normal. LUNGS: Clear. CARDIOVASCULAR: S1 and S2. ABDOMEN: Soft. No tenderness. No organomegaly. Bowel sounds normal. EXTREMITIES: No clubbing. No cyanosis. LABORATORY DATA: WBC 5.7, hemoglobin 12.2, hematocrit 36.3, and platelet 134. Sodium 136, potassium 4.2, BUN 14, and creatinine 1.0. DIAGNOSES: Coronary artery disease; dizziness; near syncope; vertigo-like symptoms, moving head [id number], feels dizzy; atrial fibrillation converted to sinus rhythm. The patient had stress test on 01/22/2016, which was negative with EF of 67%. Echocardiogram on 05/20/2017, concentric left ventricular hypertrophy, normal size left ventricle, normal left ventricular ejection fraction of 65%, [id number] mitral regurgitation, moderate tricuspid regurgitation, RVSP of 46 mm/Hg, suggestive of mild pulmonary hypertension. Trace pericardial effusion seen. PLAN: Continue meclizine 25 mg q.8 hours, doxycycline hyclate 100 mg p.o. q.12 hours, Lipitor 20 mg daily, amlodipine 5 mg daily, Pepcid 40 mg at bedtime, prednisone 20 mg p.o. daily, Proscar 5 mg daily, metoprolol succinate 25 mg p.o. daily. We will also add Ecotrin 81 mg p.o. daily. We will follow. Art Rod MD [facility] # [id number]
--- NOTE | 2017-05-23 01:14 | CON ---
DATE: 05/22/2017 CONSULTING PHYSICIAN: Vimal Hernandez DO REFERRING PHYSICIAN: Nadia Dowd MD HISTORY OF PRESENT ILLNESS: This is an 82-year-old male, past medical history includes coronary artery disease status post coronary stents, hypercholesterolemia, hypertension, acid reflux, who presented to the emergency room at [facility] on 05/19/2017 with dizziness. He reports that he woke up that morning with severe dizziness when he got up out of bed and felt that the room was falling down. The dizziness persisted throughout the day, did not come and go, and was associated with nausea and emesis. In the ER, he had a CT of the head, which ruled out any acute intracranial pathology and he was admitted for further management. Since admission, he has been treated with Antivert and prednisone for an assumed labyrinthitis and reports he has been feeling better since admission. He currently also gets very small amount of dizziness where he feels lightheaded, especially when he is getting up in the morning; however, he denies room spinning sensation at this point. He also notes long-standing history of bilateral tinnitus. He has seen Dr. Salmon in the past in the office, but does not remember getting an audiogram. Otherwise, he denies any other ear, nose, and throat complaints. PAST MEDICAL HISTORY: As above. PAST SURGICAL HISTORY: Angioplasty, cataract surgery, coronary stents, and cardiac catheterization. ALLERGIES: HE IS ALLERGIC TO PENICILLIN. SOCIAL HISTORY: He quit smoking many years ago. Denies alcohol use. HOME MEDICATIONS: Include Proscar, Pravachol, Toprol, Norvasc, and Plavix. REVIEW OF SYSTEMS: Negative as per HPI. PHYSICAL EXAMINATION: VITAL SIGNS: Temperature is 97.4, pulse is 59, blood pressure 110/74, respirations 20, and O2 sat is 98% on room air. GENERAL: He is awake, alert, and oriented x3, in no acute distress, is pleasant and comfortable. HEENT: Head is atraumatic, normocephalic. Ears: External auricles unremarkable bilaterally. Canals are clear. Tympanic membranes intact. No fluid in the middle ear. Nose: Patent bilaterally. No discharge. No epistaxis. Oral cavity, oropharynx, tongue is movable in midline. No pharyngeal erythema. Uvula is midline. Palate is midline. Eyes: Extraocular movements are intact. Pupils are equal, round, and reactive to light. Respirations are unlabored and symmetrical. LABORATORY DATA: He has a white blood cell count of 5.7, hemoglobin 12.2, hematocrit 36.3, and platelet count 134. Sodium 136, potassium 4.2, chloride 102, bicarb 26, anion gap 12, BUN 14, creatinine 1, calcium 8.9, and glucose is 107. IMAGING: He had a CT of the head from 05/19/2017, which reads normal CT of the head. ASSESSMENT AND PLAN: This is an 82-year-old male with significant cardiac history, who was admitted to [facility] for dizziness. According to the history, the patient's dizziness does sound like a viral labyrinthitis more than benign positional vertigo as he is denying that there is any history of room spinning or vertigo that lasted several minutes and then dissipated. Therefore, I suspect that this is more of a viral labyrinthitis picture for which he has been already started on prednisone. As the patient is close to being discharge, I will discharge him home on a Medrol-Dosepak. We would also discharge him home on Antivert p.r.n. He was instructed to take it as needed and do not drive on Antivert. He also has a history of long-standing tinnitus and has not had an audiogram. I would discuss with him following up in the office for an audiogram and possible hearing aids, and evaluation of his long-standing tinnitus. Otherwise, the patient is stable at this point. He states that he has not been getting out of bed due to fear of dizziness. Therefore, we would recommend physical therapy and evaluation and treatment for him to ambulate safely. Otherwise, he is safe for discharge home from the ear, nose, and throat perspective, and would follow up in the office as an outpatient. This was discussed with the patient at the bedside and he was in agreement. Thank you for allowing us to participate in this patient's care. Vimal Hernandez DO
--- NOTE | 2017-05-23 09:23 | PN ---
DATE: 05/20/2017 SUBJECTIVE: The patient is 82-year-old male. The patient is seen and examined at the bedside, looking comfortable. No nausea, vomiting, or diarrhea. No hematuria or hematochezia. Still having dizziness. No fever. No chills. PHYSICAL EXAMINATION: VITAL SIGNS: Temperature 98, pulse 58, respiratory rate 18, blood pressure 105/66, pulse oximetry 98%. HEENT: Head normocephalic, atraumatic. Eyes; PERRLA. Extraocular muscles intact. Conjunctivae clear. Nose patent. Mucous membrane moist. NECK: Supple. No carotid bruits. No JVD or thyromegaly. CHEST: Bilaterally symmetrical. HEART: S1 and S2 positive. LUNGS: Clear to auscultation. ABDOMEN: Soft. Bowel sounds positive. No organomegaly. EXTREMITIES: No edema. No cyanosis. NEUROLOGICAL: The patient is awake and alert. Moving all 4 extremities. No focal deficits. MEDICATIONS: Norvasc, Eliquis, Lipitor, Pepcid, Proscar, Antivert, Toprol. LABORATORY DATA: White blood cell 6.0, hemoglobin 13.3, hematocrit 33.6, platelets 135. Sodium 137, potassium 4.1, BUN 11, creatinine 1.2, glucose 112. ASSESSMENT AND PLAN: Neelima Beltrán is an 82-year-old male with anemia, hyperglycemia, has dizziness, seen by the Neurologist, Dr. Mckeon and Court Reporter, Dr. Dash, has history of coronary artery disease 20 years ago. Most recent stress test on 01/21/2015 was essentially negative and no change from 03/05/2015. He has almost near syncope. The patient is found to be in atrial fibrillation converting to normal sinus. So far, no evidence of acute infarction and chronic ischemic changes. We will continue meclizine. The patient is started on Eliquis for atrial fibrillation. Continue gastrointestinal and deep vein thrombosis prophylaxis. Repeat labs. We will follow up. Nadia Dowd MD
== END 2017-05-22 15:30 | disposition home or self-care (01) | DRG 149 ==
LOC: ED 06:13 → ERH 14:05 → 3RSO 16:52
PROVIDERS: ADMIT Internal Medicine; ATTEND Internal Medicine
DX: H83.09 Labyrinthitis, unspecified ear (principal); B97.89 Other viral agents as the cause of diseases classified elsewhere; I42.9 Cardiomyopathy, unspecified; E11.65 Type 2 diabetes mellitus with hyperglycemia; I27.20 Pulmonary hypertension, unspecified; I48.0 Paroxysmal atrial fibrillation; J43.9 Emphysema, unspecified; I25.10 Atherosclerotic heart disease of native coronary artery without angina pectoris; I10 Essential (primary) hypertension; K21.9 Gastro-esophageal reflux disease without esophagitis; E78.00 Pure hypercholesterolemia, unspecified; I08.1 Rheumatic disorders of both mitral and tricuspid valves; N40.0 Benign prostatic hyperplasia without lower urinary tract symptoms; M54.16 Radiculopathy, lumbar region; D50.9 Iron deficiency anemia, unspecified; Z88.0 Allergy status to penicillin; Z95.5 Presence of coronary angioplasty implant and graft; Z87.891 Personal history of nicotine dependence

== ENCOUNTER 2018-06-13 10:15 | Outpatient (CLI) | payer MEDICARE | END 2018-06-13 10:16 | disposition home or self-care (01) | LOC: RAD 10:15 ==

== ENCOUNTER 2018-07-12 06:32 | Outpatient (CLI) | payer MEDICARE | END 2018-07-12 06:33 | disposition home or self-care (01) | LOC: CARDIO 06:32 ==